=== PATIENT | male | born 1955 | race Caucasian/White ===

== ENCOUNTER 2024-10-28 15:06 | Inpatient (IN) | payer OTHER, MEDICARE ==
[2024-10-28 17:24] LABS: VENOUS BASE EXCESS -3.3 mmol/L (-2-2); VENOUS O2 SATURATION 68.5 % (70-80); VENOUS PCO2 37.5 mmHg (38-52); VENOUS PH 7.375 (7.310-7.410)
[2024-10-28 17:29] LABS: MCHC 31.3 g/dl (32.3-36.5); MEAN PLT VOLUME 10.9 fl (9.4-12.4); RDW 17.4 % (12.2-16.4)
[2024-10-28 17:30] LABS: HEMATOCRIT 27.5 % (40.1-51.0); HEMOGLOBIN 8.6 g/dL (13.7-17.5); MEAN CELL VOLUME 106.2 fl (79.0-92.2); PLATELET COUNT 190 x10^3/uL (163-337)
[2024-10-28 17:37] LABS: INR 1.31 (0.83-1.09); PROTHROMBIN TIME (PATIENT) 14.4 SEC (9.7-13.0)
[2024-10-28 17:39] LABS: EPI CELLS 6 /uL (0-25.1); HYALINE CASTS 2 /uL (0-3.1); URINE APPEARANCE CLEAR; URINE BACTERIA 37 /uL (0-1359); URINE BILIRUBIN NEGATIVE (NEGATIVE); URINE COLOR YELLOW; URINE GLUCOSE (UA) NEGATIVE (NEGATIVE); URINE KETONE NEGATIVE (NEGATIVE); URINE LEUK ESTERASE NEGATIVE (NEGATIVE); URINE NITRITE NEGATIVE (NEGATIVE); URINE PROTEIN 2+ (NEGATIVE); URINE RBC 6 /uL (0-23.9); URINE UROBILINOGEN 0.2 mg/dL (0.2-1.0); URINE WBC 7 /uL (0-25.8)
[2024-10-28 18:11] LABS: MONOCYTE # 0.57 x10^3/uL (0.30-0.82)
[2024-10-28] MEDS ORDERED: FUROSEMIDE 40 MG/4 ML INJECTABLE VIAL ONE (18:14)
[2024-10-28] MEDS: FUROSEMIDE 40 MG/4 ML INJECTABLE VIAL IVPUSH ONE ×2 (18:20→23:30)
[2024-10-28 18:44] LABS: HCV DIAGNOSTIC IN-HOUSE W/RFLX NON-REACTIVE (NONREACTIVE)
[2024-10-28 18:45] LABS: HIV INTERPRETATION NEGATIVE (NEGATIVE)
[2024-10-28 19:07] LABS: POTASSIUM 3.5 mmol/L (3.5-5.1)
[2024-10-28 19:09] LABS: CALCIUM 9.1 mg/dL (8.5-10.1)
[2024-10-28 19:10] LABS: BLOOD UREA NITROGEN 8.6 mg/dL (7-18); MAGNESIUM 2.2 mg/dL (1.8-2.4)
[2024-10-28 19:13] LABS: CREATININE 0.9 mg/dL (0.55-1.3)
[2024-10-28 19:15] LABS: TOT PROT 7.4 g/dl (6.4-8.2)
[2024-10-28 19:18] LABS: N-TERMINAL BNP 3605.4 pg/ml (5-125)
[2024-10-28 19:24] LABS: BILIRUBIN,TOTAL 0.9 mg/dL (0.2-1)
[2024-10-28] MEDS ORDERED: AZITHROMYCIN IVPB 500 MG/250 ML BAG IVPB ONE (20:25)
[2024-10-28] MEDS ORDERED: CEFTRIAXONE 1 G/50 ML PREMIX 50 ML IVPB ONE (20:25)
[2024-10-28] MEDS: CEFTRIAXONE 1 GM in DEXTROSE 5%-WATER - 100 ML IVPB ONE (20:32)
[2024-10-28] MEDS: AZITHROMYCIN IVPB 500 MG in DEXTROSE 5%-WATER - 250 ML IVPB ONE (20:49)
[2024-10-28] MEDS: LORazepam 2 MG/ML SDV VIAL IVPUSH ONE (23:30)
[2024-10-29] MEDS ORDERED: ALBUTEROL SO4 2.5/IPRATROPIUM 0.5 INH SOL 3 ML VIAL.NEB. NEB PRN (02:00)
[2024-10-29] MEDS: ALBUTEROL SO4 2.5/IPRATROPIUM 0.5 INH SOL 3 ML VIAL.NEB. NEB ONE ×2 (02:28→03:50)
[2024-10-29 02:42] LABS: URINE BARBITURATES NEGATIVE (NEGATIVE); URINE BENZODIAZEPINES NEGATIVE (NEGATIVE)
[2024-10-29 02:43] LABS: COCAINE, UR NEGATIVE (NEGATIVE); METHADONE, UR NEGATIVE (NEGATIVE); OPIATES, URI NEGATIVE (NEGATIVE); PHENCYCLIDINE,URINE NEGATIVE (NEGATIVE); URINE AMPHETAMINES NEGATIVE (NEGATIVE)
[2024-10-29] MEDS: ALBUTEROL SO4 HFA INHALER IH PRN (03:02)
[2024-10-29] MEDS: FUROSEMIDE 40 MG/4 ML INJECTABLE VIAL IVPUSH ONE (04:33)
[2024-10-29] MEDS ORDERED: FUROSEMIDE 40 MG/4 ML INJECTABLE VIAL IVPUSH SCH (06:00)
[2024-10-29] MEDS: FUROSEMIDE 40 MG/4 ML INJECTABLE VIAL IVPUSH SCH ×2 (06:50→14:38)
[2024-10-29] MEDS: ALBUTEROL SO4 2.5/IPRATROPIUM 0.5 INH SOL 3 ML VIAL.NEB. NEB SCH ×2 (07:55→10:49)
[2024-10-29 09:32] LABS: HEMATOCRIT 23.6 % (40.1-51.0); HEMOGLOBIN 7.5 g/dL (13.7-17.5); MCHC 31.8 g/dl (32.3-36.5); MEAN CELL VOLUME 104.4 fl (79.0-92.2); MEAN PLT VOLUME 11.3 fl (9.4-12.4); PLATELET COUNT 161 x10^3/uL (163-337); RDW 17.2 % (12.2-16.4)
[2024-10-29] MEDS ORDERED: CEFTRIAXONE 1 G/50 ML PREMIX 50 ML IVPB SCH (10:17)
[2024-10-29] MEDS: AZITHROMYCIN IVPB 500 MG in DEXTROSE 5%-WATER - 250 ML IVPB SCH (10:23)
[2024-10-29] MEDS: chlordiazePOXIDE HCL 25 MG CAPSULE PO PRN (10:34)
[2024-10-29 10:44] LABS: POTASSIUM 3.2 mmol/L (3.5-5.1)
[2024-10-29] MEDS: CEFTRIAXONE 1 GM in DEXTROSE 5%-WATER - 50 ML IVPB SCH (10:49)
[2024-10-29 10:53] LABS: ALBUMIN 3.9 g/dl (3.4-5.0)
[2024-10-29 10:54] LABS: BLOOD UREA NITROGEN 8.5 mg/dL (7-18); CALCIUM 8.9 mg/dL (8.5-10.1)
[2024-10-29 10:55] LABS: MAGNESIUM 2.1 mg/dL (1.8-2.4)
[2024-10-29 10:56] LABS: CREATININE 1.1 mg/dL (0.55-1.3)
[2024-10-29 10:57] LABS: BILIRUBIN,TOTAL 0.9 mg/dL (0.2-1); PHOSPHOROUS 5.5 mg/dL (2.5-4.9)
[2024-10-29] MEDS: FLUTICASONE/UMECLIDIN/VILANTER(200-62.5-25 TRELEGY ELLIPTA) INAHLER IH SCH (13:56)
[2024-10-29 16:29] LABS: BODY FLUID MONOCYTE 2 %
[2024-10-29] MEDS: chlordiazePOXIDE HCL 25 MG CAPSULE PO SCH (17:14)
[2024-10-29] MEDS: CEFTRIAXONE 1 G/50 ML PREMIX 50 ML IVPB SCH (17:19)
[2024-10-29] MEDS: AZITHROMYCIN IVPB 500 MG/250 ML BAG IVPB SCH (19:01)
[2024-10-29] MEDS: ATORVASTATIN CA 40 MG TABLET (FP) PO SCH (22:10)
[2024-10-29] MEDS ORDERED: chlordiazePOXIDE HCL 25 MG CAPSULE PO SCH (23:00)
[2024-10-30] MEDS: LORazepam 2 MG/ML SDV VIAL IVPUSH PRN ×3 (01:50→21:27)
[2024-10-30 09:18] LABS: HEMOGLOBIN 7.6 g/dL (13.7-17.5)
[2024-10-30 09:20] LABS: HEMATOCRIT 24.9 % (40.1-51.0); MCHC 30.5 g/dl (32.3-36.5); MEAN CELL VOLUME 106.4 fl (79.0-92.2); MEAN PLT VOLUME 11.5 fl (9.4-12.4); PLATELET COUNT 143 x10^3/uL (163-337); RDW 17.5 % (12.2-16.4)
[2024-10-30 09:27] LABS: INR 1.4 (0.83-1.09); PROTHROMBIN TIME (PATIENT) 15.4 SEC (9.7-13.0)
[2024-10-30] MEDS ORDERED: CEFTRIAXONE 1 G/50 ML PREMIX 50 ML IVPB SCH (10:00)
[2024-10-30 11:09] LABS: PHOSPHOROUS 5.4 mg/dL (2.5-4.9)
[2024-10-30] MEDS: LACTULOSE 20 GM/30 ML UDC (FOR ORAL USE ONLY) PO SCH (12:10)
[2024-10-30 12:37] LABS: POTASSIUM 3.3 mmol/L (3.5-5.1)
[2024-10-30 12:39] LABS: CALCIUM 9.1 mg/dL (8.5-10.1)
[2024-10-30 12:40] LABS: BLOOD UREA NITROGEN 12.2 mg/dL (7-18)
[2024-10-30 12:45] LABS: TOT PROT 7.2 g/dl (6.4-8.2)
[2024-10-30] MEDS: LACTULOSE 20 GM/30 ML UDC (FOR RECTAL USE ONLY) PR SCH ×2 (13:32→22:28)
[2024-10-30] MEDS: PHYTONADIONE 10 MG/1 ML AMP IVPB ONE (14:58)
[2024-10-30] MEDS: THIAMINE HCL 200 MG/2 ML VIAL IVPB SCH (15:00)
[2024-10-30] MEDS: FOLIC ACID 1 MG TABLET (FP) PO SCH (15:15)
[2024-10-30] MEDS: KCL 10 MEQ IVPB 10 MEQ/100 ML INFUS.BAG IVPB SCH (15:15)
[2024-10-30] MEDS: methylPREDNISolone NA SUCC 40 MG/1 ML VIAL IVPUSH ONE (17:31)
[2024-10-30 17:57] LABS: ARTERIAL BLD GAS O2 SATURATION 96.6 % (95-98); ARTERIAL BLOOD GAS BASE EXCESS 3.6 mmol/L (-2-2); ARTERIAL BLOOD GAS PO2 85.6 mmHg (80-100); ARTERIAL BLOOD GAS pH 7.421 (7.350-7.450)
[2024-10-30 17:58] LABS: ALLENS TEST POSITIVE
[2024-10-30] MEDS ORDERED: methylPREDNISolone NA SUCC 40 MG/1 ML VIAL IVPUSH SCH (18:00)
[2024-10-30] MEDS: ATORVASTATIN CA 40 MG TABLET (FP) PO SCH (21:50)
[2024-10-31] MEDS ORDERED: chlordiazePOXIDE HCL 25 MG CAPSULE PO SCH (05:00)
[2024-10-31] MEDS: FUROSEMIDE 40 MG/4 ML INJECTABLE VIAL IVPUSH SCH ×2 (05:54→15:15)
[2024-10-31 07:06] LABS: MEAN PLT VOLUME 11.7 fl (9.4-12.4); PLATELET COUNT 138 x10^3/uL (163-337); RDW 16.9 % (12.2-16.4)
[2024-10-31 07:08] LABS: MCHC 30.8 g/dl (32.3-36.5); MEAN CELL VOLUME 106.1 fl (79.0-92.2)
[2024-10-31 07:15] LABS: INR 1.42 (0.83-1.09); PROTHROMBIN TIME (PATIENT) 15.6 SEC (9.7-13.0)
[2024-10-31 07:24] LABS: POTASSIUM 3.8 mmol/L (3.5-5.1)
[2024-10-31 07:28] LABS: CALCIUM 9.2 mg/dL (8.5-10.1)
[2024-10-31 07:29] LABS: ALBUMIN 3.6 g/dl (3.4-5.0); BLOOD UREA NITROGEN 17.2 mg/dL (7-18); MAGNESIUM 2.5 mg/dL (1.8-2.4)
[2024-10-31 07:32] LABS: CREATININE 0.9 mg/dL (0.55-1.3); PHOSPHOROUS 4.8 mg/dL (2.5-4.9)
[2024-10-31 07:33] LABS: BILIRUBIN,TOTAL 0.8 mg/dL (0.2-1); TOT PROT 6.8 g/dl (6.4-8.2)
[2024-10-31] MEDS: ALBUTEROL SO4 2.5/IPRATROPIUM 0.5 INH SOL 3 ML VIAL.NEB. NEB SCH (08:40)
[2024-10-31] MEDS: FOLIC ACID 1 MG TABLET (FP) PO SCH (09:22)
[2024-10-31] MEDS: THIAMINE HCL 200 MG/2 ML VIAL IVPB SCH (09:23)
[2024-10-31] MEDS: FLUTICASONE/UMECLIDIN/VILANTER(200-62.5-25 TRELEGY ELLIPTA) INAHLER IH SCH (09:23)
[2024-10-31] MEDS ORDERED: LACTULOSE 20 GM/30 ML UDC (FOR ORAL USE ONLY) PO SCH (14:00)
[2024-10-31] MEDS: ALBUTEROL SO4 HFA INHALER IH PRN (14:25)
[2024-10-31] MEDS: guaiFENesin/D-METHORPHAN HB 10 ML UNIT-DOSE CUPS PO PRN (14:25)
[2024-10-31] MEDS: LACTULOSE 20 GM/30 ML UDC (FOR ORAL USE ONLY) PO SCH (15:15)
[2024-10-31 17:07] LABS: BODY FLUID ALBUMIN 2.8 g/dL (Not Estab.)
[2024-10-31] MEDS: CEFTRIAXONE 1 G/50 ML PREMIX 50 ML IVPB SCH (17:30)
[2024-10-31] MEDS: AZITHROMYCIN IVPB 500 MG/250 ML BAG IVPB SCH (17:30)
[2024-11-01] MEDS ORDERED: chlordiazePOXIDE HCL 10 MG CAPSULE PO PRN
[2024-11-01] MEDS ORDERED: chlordiazePOXIDE HCL 10 MG CAPSULE PO SCH (05:00)
[2024-11-01] MEDS: NICOTINE 14 MG/24 HOURS TOPICAL PATCH TD SCH (09:14)
[2024-11-01 10:38] LABS: HEMATOCRIT 27.1 % (40.1-51.0); HEMOGLOBIN 8.4 g/dL (13.7-17.5); MEAN CELL VOLUME 107.1 fl (79.0-92.2); MEAN PLT VOLUME 11.5 fl (9.4-12.4); PLATELET COUNT 150 x10^3/uL (163-337); RDW 16.7 % (12.2-16.4)
[2024-11-01 11:05] LABS: POTASSIUM 3.1 mmol/L (3.5-5.1)
[2024-11-01 11:07] LABS: BLOOD UREA NITROGEN 19.4 mg/dL (7-18); CALCIUM 9.1 mg/dL (8.5-10.1)
[2024-11-01 11:10] LABS: CREATININE 0.9 mg/dL (0.55-1.3)
[2024-11-01 12:47] LABS: MAGNESIUM 2.2 mg/dL (1.8-2.4); PHOSPHOROUS 4.1 mg/dL (2.5-4.9)
[2024-11-02] MEDS: LORazepam 2 MG/ML SDV VIAL IVPUSH ONE (03:47)
[2024-11-02] MEDS ORDERED: chlordiazePOXIDE HCL 10 MG CAPSULE PO SCH (05:00)
[2024-11-02 06:58] LABS: CALCIUM 9.2 mg/dL (8.5-10.1)
[2024-11-02 06:59] LABS: BLOOD UREA NITROGEN 17.3 mg/dL (7-18)
[2024-11-02 07:02] LABS: CREATININE 0.9 mg/dL (0.55-1.3)
[2024-11-02 07:08] LABS: HEMOGLOBIN 8.7 g/dL (13.7-17.5)
[2024-11-02 07:10] LABS: HEMATOCRIT 27.9 % (40.1-51.0); MCHC 31.2 g/dl (32.3-36.5); MEAN CELL VOLUME 105.7 fl (79.0-92.2); MEAN PLT VOLUME 11.6 fl (9.4-12.4); PLATELET COUNT 148 x10^3/uL (163-337); RDW 16.5 % (12.2-16.4)
[2024-11-02] MEDS: LORazepam 2 MG/ML SDV VIAL IVPUSH PRN (07:39)
[2024-11-02] MEDS: POTASSIUM CHLORIDE TABS 20 MEQ TABLET.ER (FP) PO SCH (09:55)
[2024-11-02] MEDS: KCL 10 MEQ IVPB 10 MEQ/100 ML INFUS.BAG IVPB SCH (09:55)
[2024-11-02] MEDS ORDERED: POTASSIUM CHLORIDE TABS 20 MEQ TABLET.ER (FP) PO SCH (14:00)
[2024-11-03] MEDS ORDERED: chlordiazePOXIDE HCL 10 MG CAPSULE PO ONE (05:00)
[2024-11-03 06:22] LABS: HEMATOCRIT 28.8 % (40.1-51.0); HEMOGLOBIN 8.9 g/dL (13.7-17.5); MCHC 30.9 g/dl (32.3-36.5); MEAN CELL VOLUME 104.3 fl (79.0-92.2); MEAN PLT VOLUME 11.4 fl (9.4-12.4); PLATELET COUNT 152 x10^3/uL (163-337); RDW 16.2 % (12.2-16.4)
[2024-11-03 06:45] LABS: POTASSIUM 3.5 mmol/L (3.5-5.1)
[2024-11-03 06:54] LABS: CALCIUM 9.3 mg/dL (8.5-10.1)
[2024-11-03 06:55] LABS: ALBUMIN 3.8 g/dl (3.4-5.0); BLOOD UREA NITROGEN 14.9 mg/dL (7-18); MAGNESIUM 2.4 mg/dL (1.8-2.4)
[2024-11-03 06:58] LABS: CREATININE 0.8 mg/dL (0.55-1.3)
[2024-11-03 07:00] LABS: TOT PROT 7.2 g/dl (6.4-8.2)
[2024-11-03 16:27] LABS: HEPATITIS B SURFACE AG MATERN NON-REACTIVE (NONREACTIVE)
[2024-11-03] MEDS: AMINO ACIDS 4.25%/D5W 1,000 ML IV SCH (17:36)
[2024-11-03] MEDS: MIRTAZAPINE 15 MG TABLET (FP) PO SCH (21:33)
[2024-11-03] MEDS: FOLIC ACID 1 MG TABLET (FP) PO SCH (21:33)
[2024-11-04] MEDS: LACTULOSE 20 GM/30 ML UDC (FOR ORAL USE ONLY) PO SCH (05:12)
[2024-11-04] MEDS: LORazepam 1 MG TABLET PO PRN (05:12)
[2024-11-04] MEDS: FUROSEMIDE 40 MG/4 ML INJECTABLE VIAL IVPUSH SCH (05:13)
[2024-11-04] MEDS: ALBUTEROL SO4 HFA INHALER IH PRN (05:25)
[2024-11-04] MEDS: ALBUTEROL SO4 2.5/IPRATROPIUM 0.5 INH SOL 3 ML VIAL.NEB. NEB SCH (07:42)
[2024-11-04] MEDS ORDERED: THIAMINE HCL 200 MG/2 ML VIAL IVPB SCH (10:00)
[2024-11-04 10:07] LABS: HEMATOCRIT 34.2 % (40.1-51.0); HEMOGLOBIN 10.8 g/dL (13.7-17.5); MCHC 31.6 g/dl (32.3-36.5); MEAN CELL VOLUME 102.1 fl (79.0-92.2); MEAN PLT VOLUME 12.1 fl (9.4-12.4); PLATELET COUNT 119 x10^3/uL (163-337)
[2024-11-04] MEDS: NICOTINE 14 MG/24 HOURS TOPICAL PATCH TD SCH (10:25)
[2024-11-04] MEDS: THIAMINE HCL 200 MG/2 ML VIAL IVPB SCH (10:25)
[2024-11-04] MEDS: guaiFENesin/D-METHORPHAN HB 10 ML UNIT-DOSE CUPS PO PRN (10:25)
[2024-11-04] MEDS: FLUTICASONE/UMECLIDIN/VILANTER(200-62.5-25 TRELEGY ELLIPTA) INAHLER IH SCH (10:27)
[2024-11-04] MEDS: CYANOCOBALAMIN (VITAMIN B-12) 1000 MCG/1 ML VIAL IM SCH (14:11)
[2024-11-04 15:20] VITALS: BMI 27.3
[2024-11-04 15:22] LABS: CALCIUM 10.2 mg/dL (8.5-10.1)
[2024-11-04 15:23] LABS: ALBUMIN 4.5 g/dl (3.4-5.0); BLOOD UREA NITROGEN 21.8 mg/dL (7-18); MAGNESIUM 2.5 mg/dL (1.8-2.4)
[2024-11-04 15:26] LABS: CREATININE 1.1 mg/dL (0.55-1.3)
[2024-11-04 15:27] LABS: TOT PROT 8.7 g/dl (6.4-8.2)
[2024-11-04] MEDS: CEFTRIAXONE 1 G/50 ML PREMIX 50 ML IVPB SCH (17:08)
[2024-11-04] MEDS: AZITHROMYCIN IVPB 500 MG/250 ML BAG IVPB SCH (17:08)
[2024-11-04] MEDS: ATORVASTATIN CA 40 MG TABLET (FP) PO SCH (21:34)
[2024-11-05 08:24] LABS: HEMOGLOBIN 11.2 g/dL (13.7-17.5); MCHC 31.1 g/dl (32.3-36.5); MEAN CELL VOLUME 101.7 fl (79.0-92.2); PLATELET COUNT 220 x10^3/uL (163-337); RDW 15.9 % (12.2-16.4)
[2024-11-05 08:52] LABS: ALBUMIN 4.5 g/dl (3.4-5.0); CALCIUM 10.6 mg/dL (8.5-10.1)
[2024-11-05 08:53] LABS: BLOOD UREA NITROGEN 27.7 mg/dL (7-18); MAGNESIUM 2.2 mg/dL (1.8-2.4)
[2024-11-05 08:56] LABS: CREATININE 1.2 mg/dL (0.55-1.3); PHOSPHOROUS 4.2 mg/dL (2.5-4.9)
[2024-11-05 08:57] LABS: BILIRUBIN,TOTAL 1.1 mg/dL (0.2-1); TOT PROT 8.9 g/dl (6.4-8.2)
[2024-11-05] MEDS: AMINO ACIDS/PROTEIN HYDROLYS 30 ML LIQUID.PKT PO SCH (17:58)
[2024-11-05] MEDS ORDERED: POTASSIUM CHLORIDE ORAL LIQUID 20 MEQ/15 ML PO SCH (22:00)
[2024-11-05] MEDS: POTASSIUM CHLORIDE ORAL LIQUID 20 MEQ/15 ML PO SCH (22:01)
[2024-11-06 09:48] LABS: HEMATOCRIT 33.7 % (40.1-51.0); HEMOGLOBIN 10.8 g/dL (13.7-17.5); MEAN CELL VOLUME 101.5 fl (79.0-92.2); MEAN PLT VOLUME 11.2 fl (9.4-12.4); PLATELET COUNT 209 x10^3/uL (163-337); RDW 15.7 % (12.2-16.4)
[2024-11-06 10:17] LABS: POTASSIUM 3.1 mmol/L (3.5-5.1)
[2024-11-06 10:44] LABS: CALCIUM 9.9 mg/dL (8.5-10.1); MAGNESIUM 2.4 mg/dL (1.8-2.4)
[2024-11-06 10:46] LABS: BLOOD UREA NITROGEN 32.6 mg/dL (7-18); URIC ACID 9.2 mg/dL (2.6-7.2)
[2024-11-06 10:47] LABS: CREATININE 1.2 mg/dL (0.55-1.3)
[2024-11-06 10:48] LABS: PHOSPHOROUS 4.4 mg/dL (2.5-4.9); TOT PROT 8.2 g/dl (6.4-8.2)
[2024-11-06 10:49] LABS: BILIRUBIN,TOTAL 0.8 mg/dL (0.2-1)
[2024-11-06] MEDS: POTASSIUM CHLORIDE ORAL LIQUID 20 MEQ/15 ML PO ONE ×2 (16:31→22:43)
[2024-11-07 00:46] VITALS: BP 135/76; PULSE 77; RESP 20; TEMP 98.4
== END 2024-11-07 00:46 | disposition short-term general hospital (02) | DRG 291 ==
LOC: JER 15:06 → JERBED 19:41 → J5S 22:58 → J4W 10-30 14:40 → J2W 10-30 17:05 → J6S 11-03 20:08
PROVIDERS: ADMIT Internal Medicine; ATTEND Internal Medicine
PROC: 0W9G3ZZ Drainage of Peritoneal Cavity, Percutaneous Approach (ICD-10-PCS; principal; 2024-10-29)
DX: I11.0 Hypertensive heart disease with heart failure (principal); G93.41 Metabolic encephalopathy; I50.33 Acute on chronic diastolic (congestive) heart failure; F10.230 Alcohol dependence with withdrawal, uncomplicated; I47.10 Supraventricular tachycardia, unspecified; E51.2 Wernicke's encephalopathy; I25.10 Atherosclerotic heart disease of native coronary artery without angina pectoris; J44.9 Chronic obstructive pulmonary disease, unspecified; K70.11 Alcoholic hepatitis with ascites; K70.30 Alcoholic cirrhosis of liver without ascites; D69.6 Thrombocytopenia, unspecified; D64.9 Anemia, unspecified; K70.31 Alcoholic cirrhosis of liver with ascites; F17.200 Nicotine dependence, unspecified, uncomplicated
CPT/HCPCS: 0241U-QW; 36415; 36600; 70450-TC; 71045-TC-FY; 71046-TC-FY; 71250-TC; 74176-TC; 76705-TC; 76942-TC; 80048; 80053; 80061; 80307; 81003; 82042; 82105; 82140; 82150; 82272; 82465; 82607; 82728; 82746; 82803; 82945; 82962; 83540; 83550; 83605; 83615; 83735; 83880; 83986; 84100; 84157; 84484; 84550; 85025; 85027; 85610; 85730; 86708; 86790; 86803; 86850; 86900; 86901; 87040; 87070; 87075; 87086; 87102; 87116; 87205; 87206; 87210; 87340; 87389; 87517; 87899; 88108; 88300-TC; 88305-TC; 93005; 93010; 93306-TC; 93975; 94640; 94660; 97116-GP; 97162-GP; 99285-25